=== PATIENT | female | born 1955 | race Caucasian/White ===

== ENCOUNTER 2021-05-06 20:39 | Inpatient (IN) | payer MEDICAID ==
[~2021-05-06] VITALS: Ht 160 cm; Wt 108.0 kg
[2021-05-06] MEDS ORDERED: DILTIAZEM HCL 5MG/ML 5ML VIAL IV ONE (21:15)
[2021-05-06 21:35] LABS: CHLORIDE 103 mEq/L (98-107)
[2021-05-06 21:52] LABS: HEMATOCRIT. 40.1 % (36.0-48.0); HEMOGLOBIN. 12.8 g/dL (12.0-16.0); MEAN CORPUSCULAR HEMOGLOBIN 31.6 pg (28.0-32.0); MEAN CORPUSCULAR VOLUME 98.7 fL (81.0-99.0); MEAN PLATELET VOLUME 8.7 fl (7.4-10.4); PLATELET 326 x1000/uL (130-400); RED BLOOD CELL COUNT 4.06 mill/uL (4.2-5.4); RED CELL DISTRIBUTION WIDTH 15.1 % (11.6-14.6)
[2021-05-06] MEDS ORDERED: DILTIAZEM HCL 120MG CAPSULE CD 24HR PO ONE (22:45)
[2021-05-06] MEDS ORDERED: ASPIRIN 81MG TABLET PO ONE (22:45)
[2021-05-06] MEDS ORDERED: CALCIUM GLUCONATE 1GM PREMIX 50 ML IV ONE (22:45)
[2021-05-06] MEDS ORDERED: POTASSIUM CHLORIDE INJ 40 MEQ in DEXT 5% WATER 500 ML IV ONE (22:45)
[2021-05-06 22:49] LABS: PLATELET ESTIMATE NORMAL
[2021-05-06] MEDS ORDERED: ONDANSETRON HCL 4MG/2ML INJ IV PRN (23:00)
[2021-05-06] MEDS ORDERED: IPRATROPIUM/ALBUTEROL 0.5-3(2.5)MG/3ML NEB NEB PRN (23:00)
[2021-05-06] MEDS ORDERED: NITROGLYCERIN 0.4MG TABLET SL SL PRN (23:00)
[2021-05-06] MEDS ORDERED: ACETAMINOPHEN 325MG TABLET PO PRN (23:00)
[2021-05-06] MEDS ORDERED: DOCUSATE SODIUM 100MG CAPSULE PO PRN (23:00)
[2021-05-06] MEDS ORDERED: KETOROLAC 15MG/ML VIAL IV PRN (23:00)
[2021-05-06] MEDS ORDERED: MAGNESIUM/ALUMINUM HYDROXIDE/SIMETHICONE 30ML UDC PO PRN (23:00)
[2021-05-06] MEDS ORDERED: CLONIDINE 0.1MG TABLET PO PRN (23:00)
[2021-05-06] MEDS: METOPROLOL TARTRATE 25MG TABLET PO SCH (23:23)
[2021-05-06] MEDS ORDERED: KCL 20MEQ/100ML PREMIX 100 ML IV NR (23:30)
[2021-05-07 00:39] LABS: ETHANOL BLOOD < 10 mg/dL
[2021-05-07 00:41] LABS: TOTAL IRON BINDING CAPACITY 393 ug/dL (250-450)
[2021-05-07] MEDS: CEFTRIAXONE 1 G PREMIX 50 ML IV SCH (00:50)
[2021-05-07] MEDS: ENOXAPARIN 120MG/0.8ML SYR SUBCUT SCH ×2 (00:59→15:04)
[2021-05-07] MEDS: AZITHROMYCIN 500 MG in DEXT 5% WATER 250 ML IV SCH (01:43)
[2021-05-07] MEDS ORDERED: KCL 20MEQ/100ML PREMIX 100 ML IV NR (02:00)
[2021-05-07] MEDS: DILTIAZEM HCL 60MG TABLET PO SCH ×3 (06:00→17:45)
[2021-05-07 06:13] LABS: CHLORIDE 108 mEq/L (98-107)
[2021-05-07 06:15] LABS: BASOPHILS % 0.4 % (0.0-2.0); EOSINOPHILS % 0.1 % (0.0-5.0); HEMATOCRIT. 33.4 % (36.0-48.0); HEMOGLOBIN. 11.1 g/dL (12.0-16.0); LYMPHOCYTES % 9.7 % (20.0-50.0); MEAN CORPUSCULAR HEMOGLOBIN 31.7 pg (28.0-32.0); MEAN CORPUSCULAR VOLUME 95.5 fL (81.0-99.0); MEAN PLATELET VOLUME 8.6 fl (7.4-10.4); MONOCYTES % 8.3 % (2.0-8.0); NEUTROPHILS % 81.5 % (40.0-76.0); PLATELET 210 x1000/uL (130-400)
[2021-05-07 06:22] LABS: CREATINE KINASE MB FRACTION 2.7 ng/mL (0.5-3.6)
[2021-05-07 06:23] LABS: PHOSPHORUS 4.3 mg/dL (2.5-4.9)
[2021-05-07] MEDS ORDERED: POTASSIUM CHLORIDE 20MEQ TABLET SR PO NR (09:00)
[2021-05-07] MEDS: ASPIRIN 325MG EC TABLET PO SCH (10:34)
[2021-05-07] MEDS: FAMOTIDINE 20MG TABLET PO SCH ×2 (10:34→21:00)
[2021-05-07] MEDS: CHOLECALCIFEROL (D3) 1000 UNIT TABLET PO SCH (10:35)
[2021-05-07] MEDS: METOPROLOL TARTRATE 25MG TABLET PO SCH ×2 (10:36→21:00)
[2021-05-07] MEDS: ASCORBIC ACID 500 MG TABLET PO SCH ×2 (10:36→21:00)
[2021-05-07] MEDS: ZINC SULFATE 220 MG ( 50 ) CAPSULE PO SCH (10:36)
[2021-05-07 16:57] LABS: BG BASE EXCESS 1.6 mmol/L (-2.0-2.0); BG CARBOXYHEMOGLOBIN 0.2 % (0.5-1.5); BG DEOXYHEMOGLOBIN 0.9 % (0.0-5.0); BG FRACTION INSPIRED OXYGEN 100; BG HCO3 ACT 27.5 mmol/L (22.0-26.0); BG METHEMOGLOBIN 0.4 % (0.0-1.5); BG OXYGEN SATURATION 99.1 % (92.0-98.5); BG OXYHEMOGLOBIN 98.5 % (94.0-97.0); BG PCO2 48.6 mmHg (35.0-45.0); BG PO2 272.3 mmHg (75.0-100.0); BG SAMPLE SITE LEFT RADIAL; BG TOTAL HEMOGLOBIN 11.2 g/dL (12.0-18.0); BG VENT MODE MASK - NRB
[2021-05-07] MEDS: SPIRONOLACTONE 25MG TABLET PO SCH (17:42)
[2021-05-07] MEDS: FUROSEMIDE 40MG/4ML VIAL IVP SCH (17:43)
[2021-05-07 19:24] LABS: CREATINE KINASE MB FRACTION 3.5 ng/mL (0.5-3.6)
[2021-05-07] MEDS: SILDENAFIL CITRATE 20MG TABLET PO SCH (22:00)
[2021-05-07] MEDS: MIDODRINE HCL 2.5MG TABLET PO SCH (22:30)
[2021-05-08] MEDS: AZITHROMYCIN 500 MG in DEXT 5% WATER 250 ML IV SCH (01:00)
[2021-05-08] MEDS: CEFTRIAXONE 1 G PREMIX 50 ML IV SCH (01:19)
[2021-05-08] MEDS: ENOXAPARIN 120MG/0.8ML SYR SUBCUT SCH ×2 (01:19→14:19)
[2021-05-08] MEDS: DILTIAZEM HCL 60MG TABLET PO SCH ×2 (01:19→23:17)
[2021-05-08 06:08] LABS: INR 1.1; PROTHROMBIN TIME 11.9 sec (9.6-11.0)
[2021-05-08 06:50] VITALS: BP 126/57
[2021-05-08 09:00] VITALS: BP 126/57
[2021-05-08] MEDS: ASPIRIN 325MG EC TABLET PO SCH (09:11)
[2021-05-08] MEDS: ZINC SULFATE 220 MG ( 50 ) CAPSULE PO SCH (09:11)
[2021-05-08] MEDS: CHOLECALCIFEROL (D3) 1000 UNIT TABLET PO SCH (09:12)
[2021-05-08] MEDS: METOPROLOL TARTRATE 25MG TABLET PO SCH ×2 (09:12→21:34)
[2021-05-08] MEDS: FAMOTIDINE 20MG TABLET PO SCH ×2 (09:13→21:34)
[2021-05-08] MEDS: ASCORBIC ACID 500 MG TABLET PO SCH ×2 (09:14→21:34)
[2021-05-08 09:22] VITALS: BP 126/57
[2021-05-08 12:00] VITALS: BP 133/60
[2021-05-08] MEDS ORDERED: FURO-151 PO (12:10)
[2021-05-08] MEDS ORDERED: METO-385 PO (12:13)
[2021-05-08 16:00] VITALS: BP 133/69
[2021-05-08 19:58] LABS: VITAMIN B12 SERUM > 2000.0 pg/mL (211-911)
[2021-05-08 20:00] VITALS: BP 126/83
[2021-05-08] MEDS ORDERED: KETOROLAC 30MG/ML VIAL IV PRN (21:30)
[2021-05-08] MEDS: SILDENAFIL CITRATE 20MG TABLET PO SCH (21:34)
[2021-05-08] MEDS: MIDODRINE HCL 2.5MG TABLET PO SCH (21:35)
[2021-05-08] MEDS: ACETAMINOPHEN 325MG TABLET PO PRN (21:35)
[2021-05-08] MEDS: GUAIFENESIN 200MG/10ML SUGAR FREE UDC PO PRN (22:41)
[2021-05-09 00:25] VITALS: BP 121/73
[2021-05-09] MEDS: CEFTRIAXONE 1,000 MG in DEXTROSE 5% WATER 50 ML IV SCH (00:50)
[2021-05-09] MEDS: ENOXAPARIN 120MG/0.8ML SYR SUBCUT SCH ×2 (00:50→14:38)
[2021-05-09] MEDS: ZOLPIDEM TARTRATE 5MG TABLET PO PRN ×2 (02:18→21:59)
[2021-05-09 04:00] VITALS: BP 134/65
[2021-05-09] MEDS: FUROSEMIDE 40MG/4ML VIAL IVP SCH ×2 (05:30→17:39)
[2021-05-09] MEDS: SILDENAFIL CITRATE 20MG TABLET PO SCH ×3 (05:30→22:00)
[2021-05-09] MEDS: MIDODRINE HCL 2.5MG TABLET PO SCH ×3 (05:31→22:00)
[2021-05-09] MEDS: DILTIAZEM HCL 60MG TABLET PO SCH ×3 (05:31→17:38)
[2021-05-09] MEDS: SPIRONOLACTONE 25MG TABLET PO SCH ×2 (05:31→17:39)
[2021-05-09] MEDS: IPRATROPIUM/ALBUTEROL 0.5-3(2.5)MG/3ML NEB HHN SCH ×3 (07:49→15:44)
[2021-05-09 08:00] VITALS: BP 112/64
[2021-05-09] MEDS: AZITHROMYCIN 500 MG TABLET PO SCH (10:25)
[2021-05-09] MEDS: FAMOTIDINE 20MG TABLET PO SCH ×2 (10:26→21:59)
[2021-05-09] MEDS: CHOLECALCIFEROL (D3) 1000 UNIT TABLET PO SCH (10:26)
[2021-05-09] MEDS: METOPROLOL TARTRATE 25MG TABLET PO SCH ×2 (10:26→21:00)
[2021-05-09] MEDS: ASPIRIN 325MG EC TABLET PO SCH (10:27)
[2021-05-09] MEDS: ASCORBIC ACID 500 MG TABLET PO SCH ×2 (10:27→21:59)
[2021-05-09] MEDS: ZINC SULFATE 220 MG ( 50 ) CAPSULE PO SCH (10:27)
[2021-05-09 12:00] VITALS: BP 109/63
[2021-05-09 16:00] VITALS: BP 109/69
[2021-05-09] MEDS: ACETAMINOPHEN 325MG TABLET PO PRN ×2 (17:38→21:59)
[2021-05-09 20:00] VITALS: BP 96/53
[2021-05-09] MEDS: GUAIFENESIN 200MG/10ML SUGAR FREE UDC PO PRN (21:59)
[2021-05-10] VITALS: BP 106/53
[2021-05-10] MEDS: IPRATROPIUM/ALBUTEROL 0.5-3(2.5)MG/3ML NEB HHN SCH ×6 (00:08→23:30)
[2021-05-10] MEDS: ENOXAPARIN 120MG/0.8ML SYR SUBCUT SCH ×3 (01:29→23:07)
[2021-05-10] MEDS: CEFTRIAXONE 1,000 MG in DEXTROSE 5% WATER 50 ML IV SCH (01:29)
[2021-05-10 04:00] VITALS: BP 97/53
[2021-05-10] MEDS: MIDODRINE HCL 2.5MG TABLET PO SCH ×3 (06:00→21:54)
[2021-05-10] MEDS: GUAIFENESIN 200MG/10ML SUGAR FREE UDC PO PRN (06:25)
[2021-05-10] MEDS: SILDENAFIL CITRATE 20MG TABLET PO SCH ×3 (06:25→21:55)
[2021-05-10] MEDS: FUROSEMIDE 40MG/4ML VIAL IVP SCH ×2 (06:25→18:06)
[2021-05-10] MEDS: DILTIAZEM HCL 60MG TABLET PO SCH ×5 (06:25→23:06)
[2021-05-10] MEDS: SPIRONOLACTONE 25MG TABLET PO SCH ×2 (06:26→18:07)
[2021-05-10] MEDS: METOPROLOL TARTRATE 25MG TABLET PO SCH ×2 (09:00→21:00)
[2021-05-10] MEDS: ZINC SULFATE 220 MG ( 50 ) CAPSULE PO SCH (10:17)
[2021-05-10] MEDS: ASPIRIN 325MG EC TABLET PO SCH (10:17)
[2021-05-10] MEDS: ASCORBIC ACID 500 MG TABLET PO SCH ×2 (10:17→21:51)
[2021-05-10] MEDS: FAMOTIDINE 20MG TABLET PO SCH ×2 (10:17→21:50)
[2021-05-10] MEDS: AZITHROMYCIN 500 MG TABLET PO SCH (10:17)
[2021-05-10] MEDS: CHOLECALCIFEROL (D3) 1000 UNIT TABLET PO SCH (10:21)
[2021-05-10 20:00] VITALS: BP 107/55
[2021-05-10] MEDS: ZOLPIDEM TARTRATE 5MG TABLET PO PRN (22:44)
[2021-05-11] VITALS: BP 105/52
[2021-05-11] MEDS: CEFTRIAXONE 1,000 MG in DEXTROSE 5% WATER 50 ML IV SCH (00:48)
[2021-05-11 03:59] VITALS: BP 109/63
[2021-05-11] MEDS: SPIRONOLACTONE 25MG TABLET PO SCH ×2 (05:41→19:32)
[2021-05-11] MEDS: FUROSEMIDE 40MG/4ML VIAL IVP SCH ×2 (05:41→19:31)
[2021-05-11] MEDS: DILTIAZEM HCL 60MG TABLET PO SCH ×3 (05:41→18:00)
[2021-05-11] MEDS: MIDODRINE HCL 2.5MG TABLET PO SCH ×3 (05:42→22:50)
[2021-05-11] MEDS: SILDENAFIL CITRATE 20MG TABLET PO SCH ×3 (05:42→19:31)
[2021-05-11 08:00] VITALS: BP 98/61
[2021-05-11] MEDS: METOPROLOL TARTRATE 25MG TABLET PO SCH ×2 (09:00→20:47)
[2021-05-11] MEDS: IPRATROPIUM/ALBUTEROL 0.5-3(2.5)MG/3ML NEB HHN SCH ×4 (09:01→20:39)
[2021-05-11] MEDS: FAMOTIDINE 20MG TABLET PO SCH ×2 (10:08→20:47)
[2021-05-11] MEDS: ASPIRIN 325MG EC TABLET PO SCH (10:08)
[2021-05-11] MEDS: CHOLECALCIFEROL (D3) 1000 UNIT TABLET PO SCH (10:08)
[2021-05-11] MEDS: ZINC SULFATE 220 MG ( 50 ) CAPSULE PO SCH (10:08)
[2021-05-11] MEDS: ASCORBIC ACID 500 MG TABLET PO SCH ×2 (10:08→20:47)
[2021-05-11] MEDS: AZITHROMYCIN 500 MG TABLET PO SCH (10:19)
[2021-05-11 12:00] VITALS: BP 105/60
[2021-05-11] MEDS: ENOXAPARIN 120MG/0.8ML SYR SUBCUT SCH (12:35)
[2021-05-11 16:00] VITALS: BP 102/62
[2021-05-11 20:00] VITALS: BP 139/70
[2021-05-11] MEDS: ACETAMINOPHEN 325MG TABLET PO PRN (20:47)
[2021-05-12] VITALS: BP 97/61
[2021-05-12] MEDS: ENOXAPARIN 120MG/0.8ML SYR SUBCUT SCH ×2 (00:42→14:17)
[2021-05-12] MEDS: GUAIFENESIN 200MG/10ML SUGAR FREE UDC PO PRN (00:47)
[2021-05-12] MEDS: CEFTRIAXONE 1,000 MG in DEXTROSE 5% WATER 50 ML IV SCH (00:50)
[2021-05-12] MEDS: IPRATROPIUM/ALBUTEROL 0.5-3(2.5)MG/3ML NEB HHN SCH ×4 (01:08→13:02)
[2021-05-12 03:57] VITALS: BP 109/63
[2021-05-12] MEDS: FUROSEMIDE 40MG/4ML VIAL IVP SCH ×2 (05:19→18:44)
[2021-05-12] MEDS: SPIRONOLACTONE 25MG TABLET PO SCH ×2 (05:20→18:44)
[2021-05-12] MEDS: DILTIAZEM HCL 60MG TABLET PO SCH ×4 (05:20→18:00)
[2021-05-12] MEDS: SILDENAFIL CITRATE 20MG TABLET PO SCH ×3 (05:21→14:51)
[2021-05-12] MEDS: MIDODRINE HCL 2.5MG TABLET PO SCH ×3 (05:21→20:09)
[2021-05-12 08:00] VITALS: BP 101/55
[2021-05-12] MEDS: METOPROLOL TARTRATE 25MG TABLET PO SCH ×2 (09:00→22:09)
[2021-05-12] MEDS: ASCORBIC ACID 500 MG TABLET PO SCH ×2 (09:37→20:09)
[2021-05-12] MEDS: FAMOTIDINE 20MG TABLET PO SCH ×2 (09:37→20:09)
[2021-05-12] MEDS: CHOLECALCIFEROL (D3) 1000 UNIT TABLET PO SCH (09:37)
[2021-05-12] MEDS: ASPIRIN 325MG EC TABLET PO SCH (09:37)
[2021-05-12] MEDS: AZITHROMYCIN 500 MG TABLET PO SCH (09:37)
[2021-05-12] MEDS: ZINC SULFATE 220 MG ( 50 ) CAPSULE PO SCH (09:37)
[2021-05-12 11:07] VITALS: BP 64/108
[2021-05-12] MEDS ORDERED: DILTIAZEM HCL 30MG TABLET PO SCH (14:15)
[2021-05-12 20:00] VITALS: BP 95/58
[2021-05-12 21:00] VITALS: BP 112/62
[2021-05-13] VITALS: BP 97/46
[2021-05-13] MEDS: ENOXAPARIN 120MG/0.8ML SYR SUBCUT SCH ×2 (00:39→12:01)
[2021-05-13 04:00] VITALS: BP 99/56
[2021-05-13] MEDS: DILTIAZEM HCL 60MG TABLET PO SCH ×3 (06:00→12:01)
[2021-05-13] MEDS: SILDENAFIL CITRATE 20MG TABLET PO SCH ×3 (06:00→14:51)
[2021-05-13] MEDS: SPIRONOLACTONE 25MG TABLET PO SCH (06:51)
[2021-05-13] MEDS: FUROSEMIDE 40MG/4ML VIAL IVP SCH (06:51)
[2021-05-13] MEDS: MIDODRINE HCL 2.5MG TABLET PO SCH ×3 (06:51→14:51)
[2021-05-13 07:00] LABS: BASOPHILS % 1.2 % (0.0-2.0); EOSINOPHILS % 4.3 % (0.0-5.0); HEMATOCRIT. 38.3 % (36.0-48.0); HEMOGLOBIN. 12.8 g/dL (12.0-16.0); MEAN CORPUSCULAR HEMOGLOBIN 31.5 pg (28.0-32.0); MEAN CORPUSCULAR VOLUME 94.1 fL (81.0-99.0); MEAN PLATELET VOLUME 8.6 fl (7.4-10.4); MONOCYTES % 11.6 % (2.0-8.0); NEUTROPHILS % 62.9 % (40.0-76.0); PLATELET 262 x1000/uL (130-400); RED BLOOD CELL COUNT 4.07 mill/uL (4.2-5.4)
[2021-05-13 07:10] LABS: CHLORIDE 98 mEq/L (98-107)
[2021-05-13 08:00] VITALS: BP 127/85
[2021-05-13] MEDS: ASPIRIN 325MG EC TABLET PO SCH (10:09)
[2021-05-13] MEDS: METOPROLOL TARTRATE 25MG TABLET PO SCH (10:09)
[2021-05-13] MEDS: ZINC SULFATE 220 MG ( 50 ) CAPSULE PO SCH (10:09)
[2021-05-13] MEDS: ASCORBIC ACID 500 MG TABLET PO SCH (10:10)
[2021-05-13] MEDS: FAMOTIDINE 20MG TABLET PO SCH (10:10)
[2021-05-13] MEDS: CHOLECALCIFEROL (D3) 1000 UNIT TABLET PO SCH (10:10)
[2021-05-13 12:00] VITALS: BP 95/60
[2021-05-13] MEDS: ACETAMINOPHEN 325MG TABLET PO PRN (12:39)
[2021-05-13 12:42] VITALS: BP 110/64
== END 2021-05-13 15:21 | disposition home or self-care (01) | DRG 194 ==
LOC: ER 20:39 → EDBD 22:36 → 6WST 22:36 → EDBEDREQTM 22:39 → EDBEDREQ 22:39 → CANRESERV 05-07 16:45 → ENRESERV 05-07 16:45
PROVIDERS: ADMIT Internal Medicine; ATTEND Internal Medicine
PROC: 5A09357 Assistance with Respiratory Ventilation, Less than 24 Consecutive Hours, Continuous Positive Airway Pressure (ICD-10-PCS; principal; 2021-05-06)
DX: I11.0 Hypertensive heart disease with heart failure (principal); J96.00 Acute respiratory failure, unspecified whether with hypoxia or hypercapnia; E44.1 Mild protein-calorie malnutrition; I50.43 Acute on chronic combined systolic (congestive) and diastolic (congestive) heart failure; E66.2 Morbid (severe) obesity with alveolar hypoventilation; I27.29 Other secondary pulmonary hypertension; E87.6 Hypokalemia; Z20.822 Contact with and (suspected) exposure to COVID-19; I27.81 Cor pulmonale (chronic); J44.1 Chronic obstructive pulmonary disease with (acute) exacerbation; I48.91 Unspecified atrial fibrillation; Z95.0 Presence of cardiac pacemaker; Z68.41 Body mass index [BMI] 40.0-44.9, adult; Z79.899 Other long term (current) drug therapy; Z87.891 Personal history of nicotine dependence
CPT/HCPCS: 36415; 71045; 80048; 80053; 80320; 82607; 82746; 83540; 83550; 83605; 83615; 83880; 84145; 84484; 85025; 93005; 93306; 93970; 94640; 94660; 97162; 97166; 97530; 99291; C9803; J0456; J0610; J0696; J1650; J1885; J1940; J3480; J3490; J7060; U0005; G0480